=== PATIENT | female | born 1965 | race Caucasian/White ===

== ENCOUNTER 2019-06-20 16:15 | Emergency (ER) | payer BC ==
--- NOTE | 2019-06-20 18:29 | UC ---
Skin Complaint HPI - HPI Summary HPI Summary: The patient is a 54-year-old female with the onset of a pruritic rash that extends from her left forehead down across to her medial canthus and extending to her left maxilla. She has moderate edema and redness of her left upper and lower eyelid. She has an area of redness that extends from her lateral canthus towards her left ear. She walks her dogs daily but denies any known contact with poison gustavo. She has used no soaps or facial products that are new. Her rash is not painful. - History of Current Complaint Chief Complaint: UCSkin Time Seen by Provider: 06/20/19 18:21 Stated Complaint: POSS ALLERGIC REACTION ON FACE FOR 24 HRS Hx Obtained From: Patient Onset/Duration: Gradual Onset Skin Exposure Onset/Duration: Hours Ago Onset Severity: Mild Current Severity: Mild Pain Intensity: 0 Pain Scale Used: 0-10 Numeric Location: Face Character: Swelling, Pruritus, Redness, Raised Aggravating Factor(s): Touch Alleviating Factor(s): Nothing Associated Signs & Symptoms: Positive: Rash. Negative: Nausea, Vomiting, Numbness, Thirst, Diaphoresis, Weakness, Pallor, Shivering, Difficulty Breathing , Fever, Chills, Cough, Wheezing, Chest Pain, Hoarseness, Throat Tightening, Abdominal Pain, Lightheadedness, Syncope, Drainage, Bruising, Tenderness, Red Streaks, Joint Swelling - Allergy/Home Medications Allergies/Adverse Reactions: Allergies Allergy/AdvReac Type Severity Reaction Status Date / Time cefixime [From Suprax] AdvReac Severe Headache Verified 06/20/19 16:39 Sulfa (Sulfonamide AdvReac Severe Headache Verified 06/20/19 16:39 Antibiotics) PMH/Surg Hx/FS Hx/Imm Hx Previously Healthy: Yes - Surgical History Surgical History: Yes Surgery Procedure, Year, and Place: , FNA of Breast, carcinoid tumor removed 2013 - Family History Known Family History: Positive: Non-Contributory - Social History Alcohol Use: Weekly Substance Use Type: None Smoking Status (MU): Former Smoker Length of Time of Smoking/Using Tobacco: quit 1989 Review of Systems All Other Systems Reviewed And Are Negative: Yes Constitutional: Positive: Negative Skin: Positive: Rash Eyes: Positive: Negative ENT: Positive: Negative Respiratory: Positive: Negative Cardiovascular: Positive: Negative Gastrointestinal: Positive: Negative Genitourinary: Positive: Negative Motor: Positive: Negative Neurovascular: Positive: Negative Musculoskeletal: Positive: Negative Neurological: Positive: Negative Psychological: Positive: Negative Physical Exam Triage Information Reviewed: Yes Appearance: Well-Appearing, No Pain Distress, Well-Nourished Vital Signs: Initial Vital Signs Temp 99.5 F 06/20/19 16:33 Pulse 68 06/20/19 16:33 Resp 16 06/20/19 16:33 BP 103/60 06/20/19 16:33 Pulse Ox 99 06/20/19 16:33 Vital Signs Reviewed: Yes Eyes: Positive: Conjunctiva Clear, Other: - left upper and lower lid edema ENT: Positive: Hearing grossly normal. Negative: Nasal congestion, Nasal drainage, Tonsillar swelling, Muffled voice, Hoarse voice Dental Exam: Normal Neck: Positive: Supple, Nontender, No Lymphadenopathy Respiratory: Positive: Lungs clear, Normal breath sounds, No respiratory distress Cardiovascular: Positive: RRR, No Murmur, Pulses Normal Musculoskeletal: Positive: ROM Intact, No Edema Neurological: Positive: Alert Psychological Exam: Normal Skin: Positive: Rashes - as described in HPI Course/Dx - Diagnoses Provider Diagnosis: Contact dermatitis Discharge ED - Sign-Out/Discharge Documenting (check all that apply): Patient Departure All imaging exams completed and their final reports reviewed: No Studies - Discharge Plan Condition: Stable Disposition: HOME Patient Education Materials: Contact Dermatitis (ED) Referrals: Kamille Yanez MD [Primary Care Provider] - 5 Days (if not improved) - Billing Disposition and Condition Condition: STABLE Disposition: Home
[2019-06-20] MEDS ORDERED: Triamcinolone Acetonide* 40 MG/ML 1 ML VIAL IM ONE (18:32)
[2019-06-20 18:56] VITALS: BP 108/62
== END 2019-06-20 18:56 | disposition home or self-care (01) ==
LOC: UCEAST 16:15
DX: L25.9 Unspecified contact dermatitis, unspecified cause (principal); Z88.1 Allergy status to other antibiotic agents; Z88.2 Allergy status to sulfonamides; Z87.891 Personal history of nicotine dependence
CPT/HCPCS: 96372; 99211; G0463; J3301